=== PATIENT | male | born 1965 | race Two or more races ===

== ENCOUNTER 2021-06-03 01:09 | Emergency (ER) | payer MEDICAID ==
[~2021-06-03] VITALS: Ht 170.2 cm; Wt 74.8 kg
--- NOTE | 2021-06-03 01:20 | NUR ---
Patient to [facility] Chair to gown for evaluation. Side rails up.
[2021-06-03 01:22] VITALS: BP_SYST 167
--- NOTE | 2021-06-03 01:28 | NUR ---
Dr. Harris bedside for pt eval
[2021-06-03] MEDS ORDERED: LORazepam 2 MG/ML VIAL IM ONE (01:30)
--- NOTE | 2021-06-03 01:30 | NUR ---
PT COMES IN FROM HOME AMBULATING WITH STEADY GAIT WITH FRIENDS FOR C/O SUDDEN ONSET LEFT ARM WEAKNESS 1 HR PAINT [employer]. DENIES ANY ACUTE CHEST PAIN OR SOB. PT SHIVERING AND RESTLESS IN CHAIR, DENIES ANY DRUG USE. STATES HE WAS DRIVING BACK TO FRIENDS HOUSE FROM [place]. RESP EVEN AND UNLABORED, ON RA @ 98%. SKI W/D/I. NO FACIAL DROOP NOTED, SPEAKING IN FULL CLEAR SENTENCES. 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 DR CANTU NEXT TO PATIENT TO EXAM PT, EKG IN PROGRESS, NSR. PT DENIES ANY MEDICAL HISTORY, DENIES ANY DAILY MEDS. CN MADE AWARE OF STATUS.
--- NOTE | 2021-06-03 02:00 | NUR ---
Pt back from Radiology, well tolerated
[2021-06-03 02:17] LABS: CALCIUM 8.5 mg/dL (8.4-11.0); CREATININE 0.92 mg/dL (0.55-1.30); POTASSIUM 3.8 mmol/L (3.5-5.1)
--- NOTE | 2021-06-03 02:18 | NUR ---
Pt verbalized " feeling a bit better " pt's also wondering when he can be DC'd
[2021-06-03 02:26] LABS: ALBUMIN 3.6 g/dL (3.4-4.8); TOTAL BILIRUBIN 0.9 mg/dL (0.0-1.0)
[2021-06-03 02:51] LABS: BASOPHILS % (AUTO) 0.8 % (0.0-2.0); EOSINOPHILS # (AUTO) 0.2 K/uL (0.0-0.4); EOSINOPHILS % (AUTO) 3.8 % (0.0-4.0); HEMATOCRIT 42.9 % (36-54); HEMOGLOBIN 14.3 g/dL (14.0-18.0); LYMPHOCYTES # (AUTO) 1.5 K/uL (1.0-5.5); LYMPHOCYTES % (AUTO) 25.3 % (20.5-51.5); MEAN CORPUSCULAR HEMOGLOBIN 30 pg (27-31); MEAN CORPUSCULAR HGB CONC 33 % (32-36); MEAN CORPUSCULAR VOLUME 89 fL (79.0-98.0); MONOCYTES # (AUTO) 0.6 K/uL (0.0-1.0); MONOCYTES % (AUTO) 9.9 % (1.7-9.3); NEUTROPHILS # (AUTO) 3.5 K/uL (1.8-7.7); NEUTROPHILS % (AUTO) 60.2 % (40.0-70.0); PLATELET COUNT (AUTO) 155 K/uL (130-430); RED BLOOD CELL COUNT(AUTO) 4.83 MIL/uL (4.2-6.2); RED CELL DISTRIBUTION WIDTH 13.4 % (9.0-15.0); WHITE BLOOD COUNT (AUTO) 5.8 K/uL (4.8-10.8)
--- NOTE | 2021-06-03 02:52 | NUR ---
Dr. Harris updated pt on waiting for pending lab
[2021-06-03 03:05] VITALS: BP_SYST 167
--- NOTE | 2021-06-03 03:05 | NUR ---
Patient given written and verbal discharge instructions and verbalizes understanding. ER MD discussed with patient the results and treatment provided. Patient in stable condition. ID arm band removed. Patient educated on pain management and to follow up with PMD. Pain Scale 0/10 Opportunity for questions provided and answered.
== END 2021-06-03 03:05 | disposition home or self-care (01) ==
LOC: SED 01:09
DX: R07.89 Other chest pain (principal); F41.9 Anxiety disorder, unspecified; R20.0 Anesthesia of skin
CPT/HCPCS: 36415; 71045; 80053; 83880; 84484; 85025; 96372; 99284; J2060